=== PATIENT | female | born 1955 | race African-American/Black ===

== ENCOUNTER 2017-05-03 08:09 | Inpatient (IN) | payer SELFPAY ==
[~2017-05-03] VITALS: Ht 165.1 cm; Wt 74.3 kg
[2017-05-03] VITALS (20 sets, daily range): BP systolic 180–281; BP diastolic 86–149; PULSE 62–91; RESP 18–37; TEMP 98–98.2; O2SAT 95–99
[~2017-05-03 08:09] MED LIST: 1-ME1LIQ PO; LISI-363 PO
[2017-05-03] MEDS ORDERED: hydrALAZINE HCL 20 MG/ML VIAL ONE (08:22)
[2017-05-03] MEDS ORDERED: hydrALAZINE HCL 20 MG/ML VIAL IV PUSH ONE (08:30)
[2017-05-03] MEDS ORDERED: NITROGLYCERIN 2% OINT 1 GM PACKET TOP ONE (08:30)
[2017-05-03] MEDS ORDERED: ASPIRIN 81 MG CHEW TAB PO ONE (08:30)
[2017-05-03] MEDS ORDERED: FUROSEMIDE 20 MG/2 ML VIAL IVP ONE (08:30)
[2017-05-03] MEDS ORDERED: ASPI81CH CHEW (08:33)
--- NOTE | 2017-05-03 08:42 | PD ---
HPI Chief Complaint: Hypertension Time Seen by Provider: 08:16 Travel History International Travel<30 days: No Contact w/Intl Traveler<30days: No Traveled to known affect area: No History of Present Illness HPI PER PT HAS NO PCP AND HAS BEEN OUT OF MEDS FOR SEVERAL MONTHS. C/O MILD SOB, WITH SCHROEDER, DENIES CP.....HAS NOTED HIGH BLOOD PRESSURE WELL...sob is not improving, and has now being going on for 4 days, no alleviating factors. denies chest pain, but does admit to chest pressure, occasionally with her sob during exertion...currently 0/10 on chest pressure. PFSH Past Medical History Depression: Yes Cardiovascular Problems: Yes (HTN) Hypertension: Yes Immunizations Current: Yes ?: Not Past Surgical History Appendectomy: Yes Gynecologic Surgery: Yes (OVARIES REMOVED) Hysterectomy: Yes Social History Alcohol Use: Yes (occassionally ) Tobacco Use: Yes (1/2 PPD ) Substance Use: Yes Allergies-Medications (Allergen,Severity, Reaction): Coded Allergies: No Known Allergies (Verified , 09/16/15) Reported Meds & Prescriptions Reported Meds & Active Scripts Active Reported Aspirin 81 Mg Chew 81 Mg CHEW DAILY Review of Systems Except as stated in HPI: all other systems reviewed are Neg Respiratory: Positive: Shortness of Breath Physical Exam Narrative GENERAL: SKIN: Warm and dry. HEAD: Atraumatic. Normocephalic. EYES: Pupils equal and round. No scleral icterus. No injection or drainage. ENT: No nasal bleeding or discharge. Mucous membranes pink and moist. NECK: Trachea midline. No JVD. CARDIOVASCULAR: Regular rate and rhythm. RESPIRATORY: No accessory muscle use. Clear to auscultation. Breath sounds equal bilaterally. GASTROINTESTINAL: Abdomen soft, non-tender, nondistended. MUSCULOSKELETAL: Extremities without clubbing, cyanosis, or edema. No obvious deformities. NEUROLOGICAL: Awake and alert. No obvious cranial nerve deficits. Motor grossly within normal limits. Five out of 5 muscle strength in the arms and legs. Normal speech. PSYCHIATRIC: Appropriate mood and affect; insight and judgment normal. Data Data Last Documented VS Vital Signs Date Time Temp Pulse Resp B/P (MAP) Pulse Ox O2 Delivery O2 Flow Rate FiO2 05/03/17 10:49 68 274/142 05/03/17 10:32 28 98 Nasal Cannula 2.00 05/03/17 08:27 98.2 Orders Orders Hydralazine Inj (Apresoline Inj) (05/03/17 08:22) Complete Blood Count With Diff (05/03/17 08:28) Comprehensive Metabolic Panel (05/03/17 08:28) B-Type Natriuretic Peptide (05/03/17 08:28) Ckmb (Isoenzyme) Profile (05/03/17 08:28) Troponin I (05/03/17 08:28) Iv Access Insert/Monitor (05/03/17 08:28) Electrocardiogram (05/03/17 08:28) Ecg Monitoring (05/03/17 08:28) Oximetry (05/03/17 08:28) Oxygen Administration (05/03/17 08:28) Chest, Single Ap (05/03/17 08:28) Ct Pulmonary Angiogram (05/03/17 08:28) Furosemide Inj (Lasix Inj) (05/03/17 08:30) Hydralazine Inj (Apresoline Inj) (05/03/17 08:30) Aspirin Chew (Aspirin Chew) (05/03/17 08:30) Nitroglycerin 2% Oint (Nitroglycerin 2% (05/03/17 08:30) Furosemide Inj (Lasix Inj) (05/03/17 09:45) Iohexol 350 Inj (Omnipaque 350 Inj) (05/03/17 10:13) Nitroglycerin-D5w 50 Mg/250 Ml (Nitrogly (05/03/17 10:30) Admit Order (Ed Use Only) (05/03/17 11:05) Labs Laboratory Tests Test 05/03/17 08:20 White Blood Count 9.5 TH/MM3 Red Blood Count 5.30 MIL/MM3 Hemoglobin 16.5 GM/DL Hematocrit 48.6 % Mean Corpuscular Volume 91.7 FL Mean Corpuscular Hemoglobin 31.2 PG Mean Corpuscular Hemoglobin Concent 34.1 % Red Cell Distribution Width 14.1 % Platelet Count 298 TH/MM3 Mean Platelet Volume 7.9 FL Neutrophils (%) (Auto) 69.4 % Lymphocytes (%) (Auto) 21.6 % Monocytes (%) (Auto) 6.1 % Eosinophils (%) (Auto) 2.2 % Basophils (%) (Auto) 0.7 % Neutrophils # (Auto) 6.6 TH/MM3 Lymphocytes # (Auto) 2.1 TH/MM3 Monocytes # (Auto) 0.6 TH/MM3 Eosinophils # (Auto) 0.2 TH/MM3 Basophils # (Auto) 0.1 TH/MM3 CBC Comment DIFF FINAL Differential Comment Blood Urea Nitrogen 8 MG/DL Creatinine 0.82 MG/DL Random Glucose 104 MG/DL Total Protein 7.7 GM/DL Albumin 3.5 GM/DL Calcium Level 9.1 MG/DL Alkaline Phosphatase 70 U/L Aspartate Amino Transf (AST/SGOT) 20 U/L Alanine Aminotransferase (ALT/SGPT) 26 U/L Total Bilirubin 0.6 MG/DL Sodium Level 139 MEQ/L Potassium Level 3.5 MEQ/L Chloride Level 104 MEQ/L Carbon Dioxide Level 27.5 MEQ/L Anion Gap 8 MEQ/L Estimat Glomerular Filtration Rate 85 ML/MIN Total Creatine Kinase 66 U/L Troponin I 0.08 NG/ML B-Type Natriuretic Peptide 1770 PG/ML MDM Medical Decision Making Medical Screen Exam Complete: Yes Emergency Medical Condition: Yes Medical Record Reviewed: Yes Interpretation(s) NSR, LAE, LVH, NL INTERVALS, NONSTEMI PATTERN Differential Diagnosis PULM EMBOLUS V CHF V KIDNEY FAILURE Narrative Course patient presented quite hypertensive and without a history of kidney or congestvie heart failure...however, during evaluation jorge was found to have evidnece of new onset chf with cardiac ischemia, therefore patient was placed on admission path and d/w patient as well as admitting doc.......treatment requiredd lasix, ntg paste, asa, and hydralazine and no success so patient started on iv ntg drip Critical Care Narrative CRITICAL CARE NOTE: With evaluation of the patient, labs, EKG, receipt of radiologic studies, administration of medications, reevaluation the patient and discussion of the patient with the admitting physicians, the total critical care time was [45] minutes. Time to perform other separately billable procedures was not included in the critical care time. Diagnosis Primary Impression: hypertensive emergency Additional Impressions: new onset chf nonstemi Admitting Information Admitting Physician Requests: Observation Scripts Potassium Chloride Microencaps (Potassium Chloride Microencaps) 20 Meq Tab 20 MEQ PO BID for chf, #60 TAB Prov: Rachel Nolasco MD 05/04/17 Furosemide (Furosemide) 40 Mg Tab 40 MG PO DAILY for chf, #30 TAB Prov: Rachel Nolasco MD 05/04/17 Lisinopril (Lisinopril) 20 Mg Tab 40 MG PO DAILY for htn, #30 TAB Prov: Rachel Nolasco MD 05/04/17 Amlodipine (Norvasc) 10 Mg Tab 10 MG PO DAILY for htn, #30 TAB Prov: Rachel Nolasco MD 05/04/17 Carvedilol (Coreg) 3.125 Mg Tab 3.125 MG PO Q12HR for htn, #60 TAB Prov: Rachel Nolasco MD 05/04/17 Ervin Benitez MD May 03, 2017 08:42
[2017-05-03 08:57] LABS: AUTOMATED NEUTROPHIL # 6.6 TH/MM3 (1.8-7.7); BASOPHIL # 0.1 TH/MM3 (0-0.2); BASOPHIL % 0.7 % (0.0-2.0); EOSINOPHIL # 0.2 TH/MM3 (0-0.4); EOSINOPHIL % 2.2 % (0.0-4.0); HEMATOCRIT 48.6 % (35.0-46.0); HEMO FLAGS DIFF FINAL; LYMPH % 21.6 % (9.0-44.0); LYMPHOCYTE # 2.1 TH/MM3 (1.0-4.8); MEAN CELL VOLUME 91.7 FL (80.0-100.0); MEAN CORPUSCULAR HEMOGLOBIN 31.2 PG (27.0-34.0); MEAN CORPUSCULAR HGB CONC 34.1 % (32.0-36.0); MONO % 6.1 % (0.0-8.0); NEUT % 69.4 % (16.0-70.0); PLATELET COUNT 298 TH/MM3 (150-450); RED CELL DISTRIBUTION WIDTH 14.1 % (11.6-17.2); WHITE BLOOD COUNT 9.5 TH/MM3 (4.0-11.0)
[2017-05-03 09:06] LABS: ALT (GPT) 26 U/L (10-53); ANION GAP 8 MEQ/L (5-15); AST (GOT) 20 U/L (15-37); BICARBONATE 27.5 MEQ/L (21.0-32.0); BLOOD UREA NITROGEN 8 MG/DL (7-18); CHLORIDE 104 MEQ/L (98-107); GLOMERULAR FILTRATION RATE 85 ML/MIN (>89); POTASSIUM 3.5 MEQ/L (3.5-5.1); SODIUM (NA) 139 MEQ/L (136-145)
[2017-05-03 09:10] LABS: ALKALINE PHOSPHATASE 70 U/L (45-117); TOTAL BILIRUBIN ADULT 0.6 MG/DL (0.2-1.0)
[2017-05-03 09:13] LABS: CREATINE KINASE 66 U/L (26-192)
--- NOTE | 2017-05-03 09:44 | RADRPT ---
EXAM DATE/TIME: 05/03/2017 08:35 [facility] COMPARISON: CHEST SINGLE AP, September 16, 2015, 4:35. INDICATIONS : Short of breath MEDICAL HISTORY : Hypertension. SURGICAL HISTORY : None. ENCOUNTER: Initial ACUITY: 3 days PAIN SCORE: 0/10 LOCATION: chest FINDINGS: The heart is mildly enlarged. Minimal bibasilar streakiness is noted consistent with atelectasis and /or minimal infiltrates. Clinical correlation is recommended. Discoid atelectasis is noted within t he left mid lung field. CONCLUSION: 1. Minimal bibasilar streakiness consistent with atelectasis and/or developing infiltrates. Clinica l correlation is recommended. 2. Cardiomegaly. Naveen Quezada MD on May 03, 2017 at 9:23 Board Certified Radiologist. This report was verified electronically.
[2017-05-03] MEDS ORDERED: FUROSEMIDE 20 MG/2 ML VIAL IV PUSH ONE (09:45)
[2017-05-03] MEDS ORDERED: IOHEXOL 350 MG/ML 10 ML VIAL (for RAD DIAG) IVCONTRAST ONE (10:13)
[2017-05-03] MEDS ORDERED: NITROGLYCERIN-D5W 50 MG/250 ML 250 ML IV PRN (10:30)
--- NOTE | 2017-05-03 10:35 | RADRPT ---
EXAM DATE/TIME: 05/03/2017 10:03 [facility] COMPARISON: No previous studies available for comparison. INDICATIONS : Shortness of breath. IV CONTRAST: 74 cc Omnipaque 350 (iohexol) IV RADIATION DOSE: 23.21 CTDIvol (mGy) MEDICAL HISTORY : Hypertension. SURGICAL HISTORY : Hysterectomy. ENCOUNTER: Initial ACUITY: 1 day PAIN SCALE: 0/10 LOCATION: chest TECHNIQUE: Volumetric scanning of the chest was performed using a pulmonary embolism protocol MIP images were re constructed. Using automated exposure control and adjustment of the mA and/or kV according to patien t size, radiation dose was kept as low as reasonably achievable to obtain optimal diagnostic quality images. DICOM format image data is available electronically for review and comparison. Follow-up recommendations for detected pulmonary nodules are based at a minimum on nodule size and pa tient risk factors according to Fleischner Society Guidelines. FINDINGS: PULMONARY ARTERIES: No filling defects are seen in the pulmonary arteries through the segmental level. LUNGS: Minimal atelectasis present in the lung bases and left upper lobe. PLEURAE: Small bilateral pleural effusions. MEDIASTINUM: Mild prominence of central ediastinal nodes and of right hilar tamar tissue. MUSCULOSKELETAL: Within normal limits for patient age. MISCELLANEOUS: The visualized upper abdominal organs demonstrate no acute abnormality. CONCLUSION: No evidence of pulmonary embolism. Small effusions. Minimal atelectasis. Mild prominence of right hilar and mediastinal lymph nodes. Charly Wahl MD on May 03, 2017 at 10:26 Board Certified Radiologist. This report was verified electronically.
--- NOTE | 2017-05-03 11:38 | HHI.HP ---
[facility] No Primary Care Physician Admission Diagnosis HYPERTENSIVE EMERGENCY, NONSTEMI, Diagnoses: Chief Complaint: Short of breath Travel History International Travel<30 Days: No Contact w/Intl Traveler <30 Da: No Traveled to Known Affected Are: No History of Present Illness 62 years old female with chronic history of uncontrolled hypertension presented to the ED complaining of shortness of breath orthopnea but no chest pain, in ED she was found to have severe hypertension of 281/149, patient started on nitro drip, she was given hydralazine, troponin was 0.08. She denied any nausea or vomiting, diarrhea constipation, dysuria urgency frequency, recent flulike syndrome. She reported a headache 3 out of 10, Patient stated she hasn't been on any medication because she cannot find a PCP. Review of Systems All systems reviewed and was positive for what is mentioned in history of present illness otherwise negative Past Family Social History Past Medical History Uncontrolled hypertension Small vessel disease on head CT Chronic smoking abuse Appendectomy Hysterectomy Past Surgical History As above Allergies: Coded Allergies: No Known Allergies (Verified , 09/16/15) Family History Mother had GI cancer father had prostate cancer Social History Half pack per day for over 30 years, she drinks last a while every 2-3 days Physical Exam Vital Signs Vital Signs Date Time Temp Pulse Resp B/P (MAP) Pulse Ox O2 Delivery O2 Flow Rate FiO2 05/03/17 10:49 68 274/142 05/03/17 10:32 70 28 274/142 (186) 98 Nasal Cannula 2.00 05/03/17 09:57 62 200/88 (125) 05/03/17 09:42 69 188/86 (120) 05/03/17 09:21 67 24 208/100 (136) 98 Nasal Cannula 2.00 196/88 (124) 05/03/17 08:47 68 28 258/129 (172) 98 Nasal Cannula 2.00 05/03/17 08:34 98 Nasal Cannula 2.00 05/03/17 08:34 18 98 Nasal Cannula 2.00 05/03/17 08:28 75 18 98 Room Air 05/03/17 08:27 98.2 77 20 281/149 (193) 98 Nasal Cannula 2.00 241/138 (172) Physical Exam GENERAL: This is a well-nourished, well-developed patient, in no apparent distress. SKIN: No rashes, warm and dry HEAD: Atraumatic. Normocephalic. EYES: Pupils equal round and reactive. Extraocular motions intact. No scleral icterus. ENT: Nose without bleeding, or drainage, Airway patent. NECK: Trachea midline. Supple CARDIOVASCULAR: Regular rate and rhythm, no S4 gallop could be appreciated RESPIRATORY: Fair air entry bilaterally. No wheezes, rales, or rhonchi. GASTROINTESTINAL: Abdomen soft, non-tender, nondistended. Positive bowel sounds MUSCULOSKELETAL: Extremities without clubbing, cyanosis, or edema. Pedal pulses appreciated NEUROLOGICAL: Awake and alert. Moves all extremity. Normal speech.no focal neurological deficit Laboratory Laboratory Tests Test 05/03/17 08:20 White Blood Count 9.5 Red Blood Count 5.30 Hemoglobin 16.5 Hematocrit 48.6 Mean Corpuscular Volume 91.7 Mean Corpuscular Hemoglobin 31.2 Mean Corpuscular Hemoglobin Concent 34.1 Red Cell Distribution Width 14.1 Platelet Count 298 Mean Platelet Volume 7.9 Neutrophils (%) (Auto) 69.4 Lymphocytes (%) (Auto) 21.6 Monocytes (%) (Auto) 6.1 Eosinophils (%) (Auto) 2.2 Basophils (%) (Auto) 0.7 Neutrophils # (Auto) 6.6 Lymphocytes # (Auto) 2.1 Monocytes # (Auto) 0.6 Eosinophils # (Auto) 0.2 Basophils # (Auto) 0.1 CBC Comment DIFF FINAL Differential Comment Blood Urea Nitrogen 8 Creatinine 0.82 Random Glucose 104 Total Protein 7.7 Albumin 3.5 Calcium Level 9.1 Alkaline Phosphatase 70 Aspartate Amino Transf (AST/SGOT) 20 Alanine Aminotransferase (ALT/SGPT) 26 Total Bilirubin 0.6 Sodium Level 139 Potassium Level 3.5 Chloride Level 104 Carbon Dioxide Level 27.5 Anion Gap 8 Estimat Glomerular Filtration Rate 85 Total Creatine Kinase 66 Troponin I 0.08 B-Type Natriuretic Peptide 1770 Result Diagram: 05/03/1781905/03/17819 Imaging Last Impressions Chest X-Ray 05/03/17827 Signed Impressions: Service Date/Time: April 08:35 - CONCLUSION: 1. Minimal bibasilar streakiness consistent with atelectasis and/or developing infiltrates. Clinical correlation is recommended. 2. Cardiomegaly. Naveen Quezada MD CT Angiography 05/03/17 0828 Signed Impressions: Service Date/Time: April 10:03 - CONCLUSION: No evidence of pulmonary embolism. Small effusions. Minimal atelectasis. Mild prominence of right hilar and mediastinal lymph nodes. Charly Wahl MD Head CT 05/03/17 0000 Signed Impressions: Service Date/Time: April 12:09 - CONCLUSION: 1. Moderate periventricular/subcortical white matter small vessel ischemic changes are noted bilaterally. 2. No acute infarct, acute hemorrhage, mass effect or extra-axial fluid collections. Naveen Quezada MD Capcarteri VTE Risk Assessment Caprini VTE Risk Assessment: Mod/High Risk (score >= 2) Caprini Risk Assessment Model Point Value = 1 Point Value = 2 Point Value = 3 Point Value = 5 Age 41-60 Minor surgery BMI > 25 kg/m2 Swollen legs Varicose veins or History of unexplained or recurrent spontaneous Oral contraceptives or hormone replacement Sepsis (< 1 month) Serious lung disease, including pneumonia (< 1 month) Abnormal pulmonary function Acute myocardial infarction Congestive heart failure (< 1 month) History of inflammatory bowel disease Medical patient at bed rest Age 61-74 Arthroscopic surgery Major open surgery (> 45 min) Laparoscopic surgery (> 45 min) Malignancy Confined to bed (> 72 hours) Immobilizing plaster cast Central venous access Age >= 75 History of VTE Family history of VTE Factor V Leiden Prothrombin [id number] Lupus anticoagulant Anticardiolipin antibodies Elevated serum homocysteine Heparin-induced thrombocytopenia Other congenital or acquired thrombophilia Stroke (< 1 month) Elective arthroplasty Hip, pelvis, or leg fracture Acute spinal cord injury (< 1 month) Prophylaxis Regimen Total Risk Factor Score Risk Level Prophylaxis Regimen 0-1 Low Early ambulation 2 Moderate Order ONE of the following: *Sequential Compression Device (SCD) *Heparin 5000 units SQ BID 3-4 Higher Order ONE of the following medications: *Heparin 5000 units SQ TID *Enoxaparin/Lovenox 40 mg SQ daily (WT < 150 kg, CrCl > 30 mL/min) *Enoxaparin/Lovenox 30 mg SQ daily (WT < 150 kg, CrCl > 10-29 mL/min) *Enoxaparin/Lovenox 30 mg SQ BID (WT < 150 kg, CrCl > 30 mL/min) AND/OR *Sequential Compression Device (SCD) 5 or more Highest Order ONE of the following medications: *Heparin 5000 units SQ TID (Preferred with Epidurals) *Enoxaparin/Lovenox 40 mg SQ daily (WT < 150 kg, CrCl > 30 mL/min) *Enoxaparin/Lovenox 30 mg SQ daily (WT < 150 kg, CrCl > 10-29 mL/min) *Enoxaparin/Lovenox 30 mg SQ BID (WT < 150 kg, CrCl > 30 mL/min) AND *Sequential Compression Device (SCD) Assessment and Plan Assessment and Plan 62 years old AA female presented with Severe hypertensive urgency/emergency with worsening kidney disease Elevated troponin mostly due to hypertensive emergency, LVH Most likely diastolic cardiomyopathy awaiting 2-D echo for confirmation Increase creatinine mostly hypertensive nephropathy History of chronic hypertension-controlled, treated Tobacco abuse Elevated BNP 1770 mostly underlying diastolic dysfunction 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 DVT prophylaxis Plan: Admit to IMC with close monitoring under telemetry Started on nitroglycerin, Nitropatch, given hydralazine iv Monitor blood pressure closely pain for 25% decrease for the first 12-18 hours Started on lisinopril, amlodipine, Coreg Consulted cardiology 2-D echo pending Check FLP DVT prophylaxis with heparin, check CT head to rule out IC H prior Discussed Condition With Patient in ED physician Physician Certification 2 Midnight Certification Type: Admission for Inpatient Services Order for Inpatient Services The services are ordered in accordance with Medicare regulations or non- Medicare payer requirements, as applicable. In the case of services not specified as inpatient-only, they are appropriately provided as inpatient services in accordance with the 2-midnight benchmark. Estimated LOS (days): 2 days is the estimated time the patient will need to remain in the hospital, assuming treatment plan goals are met and no additional complications. Post-Hospital Plan: Home Rachel Nolasco MD May 03, 2017 11:38
[2017-05-03] MEDS ORDERED: hydrALAZINE HCL 20 MG/ML VIAL IV PRN (11:45)
--- NOTE | 2017-05-03 12:30 | RADRPT ---
EXAM DATE/TIME: 05/03/2017 12:09 [facility] COMPARISON: No previous studies available for comparison. INDICATIONS : Headache, hypertensive emergency RADIATION DOSE: 27.22 CTDIvol (mGy) MEDICAL HISTORY : Hypertension. SURGICAL HISTORY : Hysterectomy. ENCOUNTER: Initial ACUITY: 1 day PAIN SCALE: 3/10 LOCATION: cranial TECHNIQUE: Multiple contiguous axial images were obtained of the head. Using automated exposure control and adj ustment of the mA and/or kV according to patient size, radiation dose was kept as low as reasonably a chievable to obtain optimal diagnostic quality images. DICOM format image data is available electro nically for review and comparison. FINDINGS: CEREBRUM: The ventricles are normal for age. No evidence of midline shift, mass lesion, hemorrhage or acute in farction. No extra-axial fluid collections are seen. Moderate periventricular/subcortical white humaira er small vessel ischemic changes are noted bilaterally. POSTERIOR FOSSA: The cerebellum and brainstem are intact. The 4th ventricle is midline. The cerebellopontine angle i s unremarkable. EXTRACRANIAL: The visualized portion of the orbits is intact. SKULL: The calvaria is intact. No evidence of skull fracture. CONCLUSION: 1. Moderate periventricular/subcortical white matter small vessel ischemic changes are noted bilatera lly. 2. No acute infarct, acute hemorrhage, mass effect or extra-axial fluid collections. Naveen Quezada MD on May 03, 2017 at 12:24 Board Certified Radiologist. This report was verified electronically.
--- NOTE | 2017-05-03 14:21 | MB ---
cc: GRUPO ADAN M.D. DATE OF CONSULTATION: 05/03/2017 REASON FOR CONSULTATION Evaluation of elevated troponin. HISTORY OF PRESENT ILLNESS Carol Flanagan is a 62-year-old -[place] female admitted to the hospital with uncontrolled hypertension. She has had multiple ER visits going back to 2002. She has a longstanding history of hypertension and a longstanding history of poor compliance. She says she has been having trouble finding a physician that accepts [place] that is in the area where she can travel to. She does not drive. She has been out of meds for a very long time. She has had other visits here with extreme hypertension including I found one February 2016 when she was 271/146. This time she was 281/149. She started noticing shortness of breath and orthopnea 3 days ago, has not had any typical anginal type pain. She finally decided to come to the hospital to get it checked out. She does not have a physician that follows her and she has no regular medications. She has previous EKG showing LVH changes. So far she has received is IV medication, actually has not started on anything orally. She denies syncope or presyncope. She smokes half-pack of cigarettes a day. She likes to drink beer. She says she is bored so she sits on her porch and drinks beer. Of note, she was Garcia Acted in August of 2015 after taking 10 Lortab and four alcoholic drinks and the psychiatry consult at that time suggested that she had alcoholism. I was not able to actually quantify how much beer she drinks currently. PAST MEDICAL HISTORY Past medical history includes: 1. Previous [place] Act for taking 10 Lortab and four drinks September 16, 2015. 2. Chronic uncontrolled hypertension with evidence for LVH. 3. Small-vessel disease on a head CT, probably consistent with longstanding hypertension. 4. Chronic tobacco abuse. PAST SURGICAL HISTORY 1. Appendectomy. 2. Hysterectomy. SOCIAL HISTORY Lives alone. Her and she is . She has two sons, six grandchildren, two great-grandchildren. She says her two sons are unable to help her, one lives in [place] and one is busy working. FAMILY HISTORY The family history is positive for hypertension. PHYSICAL EXAMINATION GENERAL: Well-developed, well-nourished -[place] female, slightly tearful, not in any acute distress. VITAL SIGNS: Charted. HEENT: Exam unremarkable. NECK: Negative for JVD or bruits. CHEST: Shows diminished breath sounds. No rales or wheezes. CARDIAC: S1, S2, S4, regular rate and rhythm. I do not hear a murmur. ABDOMEN: Soft, nontender. EXTREMITIES: No clubbing, cyanosis or edema. Pulses are intact. EKG Shows sinus rhythm with left ventricular hypertrophy. IMAGING STUDIES Chest x-ray shows some minimal bibasilar changes. CT showed no PE but a small effusions, all this consistent with mild CHF. LABORATORY Troponin is 0.08. BNP 1770. Hematocrit 48.6, creatinine 0.82. IMPRESSION Severe uncontrolled hypertension secondary to noncompliance with medications, her hypertension, fairly advanced age, she has left ventricular hypertrophy demonstrated by EKG, probably has a component of heart failure and most likely due to diastolic dysfunction but an echo would help sort this out. She has not been started on any p.o. meds yet. PLAN I recommend we go ahead and start p.o. meds. I am giving her 10 mg of amlodipine, 40 mg of lisinopril now and daily, starting carvedilol 3.125 p.o. b.i.d. Giving her one dose of p.o. Lasix and potassium supplements and continuing that daily. Check a 2-D echo Doppler study. Long-term she needs to get established with a primary care physician. Unclear to me what her alcohol status is, whether she is an alcoholic or not I cannot tell at this point and that might need to be further explored by the primary team. MD SAMMIE Banegas/DALI /1:30 PM /1:47 PM
[2017-05-03] MEDS: FUROSEMIDE 40 MG TAB PO SCH (14:23)
[2017-05-03] MEDS: LISINOPRIL 20 MG TAB PO SCH (14:24)
[2017-05-03] MEDS: NITROGLYCERIN-D5W 50 MG/250 ML 250 ML IV PRN ×2 (14:28→23:40)
[2017-05-03] MEDS ORDERED: LORazepam 1 MG TAB PO PRN (15:30)
[2017-05-03] MEDS ORDERED: LORazepam 2 MG/ML VIAL IV PUSH PRN ×4 (15:30)
[2017-05-03] MEDS ORDERED: FLUMAZENIL 0.5 MG/5 ML VIAL IV PUSH PRN (15:30)
[2017-05-03] MEDS ORDERED: LORazepam 2 MG TAB PO PRN (15:30)
[2017-05-03] MEDS: POTASSIUM CHLORIDE 20 MEQ CONTROLLED RELEASE TAB PO SCH (17:39)
[2017-05-03] MEDS: CARVEDILOL 3.125 MG TAB PO SCH (21:00)
[2017-05-03] MEDS ORDERED: ACETAMINOPHEN 325 MG TAB PO PRN (22:15)
[2017-05-04] VITALS (14 sets, daily range): BP systolic 148–178; BP diastolic 72–98; PULSE 64–83; RESP 22–35; TEMP 97.7–98.6; O2SAT 93–100
[2017-05-04 00:09] LABS: GLOMERULAR FILTRATION RATE 67 ML/MIN (>89)
[2017-05-04 00:11] LABS: CREATINE KINASE 117 U/L (26-192)
[2017-05-04 00:24] LABS: CKMB 1.9 NG/ML (0.5-3.6)
[2017-05-04 04:36] LABS: AUTOMATED NEUTROPHIL # 8.5 TH/MM3 (1.8-7.7); BASOPHIL % 0.3 % (0.0-2.0); EOSINOPHIL # 0.1 TH/MM3 (0-0.4); EOSINOPHIL % 1.1 % (0.0-4.0); HEMATOCRIT 44.4 % (35.0-46.0); HEMO FLAGS DIFF FINAL; LYMPH % 20.3 % (9.0-44.0); LYMPHOCYTE # 2.4 TH/MM3 (1.0-4.8); MEAN CORPUSCULAR HEMOGLOBIN 31.1 PG (27.0-34.0); MEAN CORPUSCULAR HGB CONC 34.2 % (32.0-36.0); MONO % 5.9 % (0.0-8.0); NEUT % 72.4 % (16.0-70.0); PLATELET COUNT 315 TH/MM3 (150-450); RED BLOOD COUNT 4.88 MIL/MM3 (4.00-5.30); RED CELL DISTRIBUTION WIDTH 13.6 % (11.6-17.2); WHITE BLOOD COUNT 11.8 TH/MM3 (4.0-11.0)
[2017-05-04 05:01] LABS: BICARBONATE 24.1 MEQ/L (21.0-32.0); POTASSIUM 3.5 MEQ/L (3.5-5.1)
[2017-05-04 05:06] LABS: CREATINE KINASE 133 U/L (26-192); HDL CHOLESTEROL 48.6 MG/DL (40.0-60.0); LDL CHOLESTEROL 90 MG/DL (0-99)
[2017-05-04 05:18] LABS: CKMB 1.5 NG/ML (0.5-3.6)
[2017-05-04] MEDS: LISINOPRIL 20 MG TAB PO SCH (08:41)
[2017-05-04] MEDS: CARVEDILOL 3.125 MG TAB PO SCH (08:41)
[2017-05-04] MEDS: FUROSEMIDE 40 MG TAB PO SCH (08:41)
[2017-05-04] MEDS: POTASSIUM CHLORIDE 20 MEQ CONTROLLED RELEASE TAB PO SCH ×2 (08:41→13:06)
--- NOTE | 2017-05-04 10:02 | PD.CARD.PN ---
Subjective Subjective Remarks SOB resolved. Slept good without orthopnea. No angina Objective Medications Current Medications Medications (Trade) Dose Ordered Sig/Gabriella Route Start Time Stop Time Status Last Admin Nitroglycerin/ Dextrose 250 ml @ 1.5 mls/hr TITRATE PRN IV 05/03/17 11:30 05/03/17 23:40 (Apresoline Inj) 10 mg Q6H PRN IV 05/03/17 11:45 05/03/17 12:29 (Norvasc) 10 mg DAILY PO 05/03/17 13:30 05/04/17 08:41 (Prinivil) 40 mg DAILY PO 05/03/17 13:30 05/04/17 08:41 (Lasix) 40 mg DAILY PO 05/03/17 13:30 05/04/17 08:41 (KCl) 20 meq TID PO 05/03/17 18:00 05/04/17 08:41 (Coreg) 3.125 mg Q12HR PO 05/03/17 21:00 05/04/17 08:41 (Romazicon Inj) 0.2 mg Q1M PRN IV PUSH 05/03/17 15:30 (Ativan) 1 mg Q4H PRN PO 05/03/17 15:30 (Ativan Inj) 1 mg Q4H PRN IV PUSH 05/03/17 15:30 (Ativan) 2 mg Q2H PRN PO 05/03/17 15:30 (Ativan Inj) 2 mg Q2H PRN IV PUSH 05/03/17 15:30 (Ativan Inj) 2 mg Q1H PRN IV PUSH 05/03/17 15:30 (Ativan Inj) 2 mg Q15M PRN IV PUSH 05/03/17 15:30 (Tylenol) 650 mg Q6HR PRN PO 05/03/17 22:15 05/03/17 23:06 Vital Signs / I&O Vital Signs Date Time Temp Pulse Resp B/P (MAP) Pulse Ox O2 Delivery O2 Flow Rate FiO2 05/04/17 08:38 77 158/89 05/04/17 06:00 72 05/04/17 04:00 98.3 71 22 167/98 (121) 95 05/04/17 04:00 73 05/04/17 02:00 74 05/04/17 00:00 98.6 75 24 157/81 (106) 93 05/04/17 00:00 76 05/03/17 23:40 79 148/80 05/03/17 22:00 77 05/03/17 21:50 97 21 05/03/17 20:00 90 05/03/17 20:00 98.0 91 22 180/99 (126) 97 05/03/17 18:00 78 05/03/17 16:00 88 05/03/17 16:00 98.0 88 37 199/106 (137) 99 05/03/17 15:00 70 30 206/112 (143) 95 05/03/17 15:00 70 05/03/17 14:45 77 211/123 05/03/17 14:37 74 05/03/17 14:28 74 203/115 05/03/17 13:27 73 18 221/112 (148) 98 Nasal Cannula 2.00 05/03/17 13:20 74 18 190/99 (129) 99 Nasal Cannula 2.00 05/03/17 12:51 73 18 198/112 (140) 99 Nasal Cannula 2.00 05/03/17 12:29 68 18 221/109 (146) 97 Nasal Cannula 2.00 05/03/17 12:01 98 Nasal Cannula 2.00 05/03/17 11:49 69 18 210/112 (144) 98 Room Air 05/03/17 10:49 68 274/142 05/03/17 10:32 70 28 274/142 (186) 98 Nasal Cannula 2.00 I/O 05/03/17 05/03/17 05/03/17 05/04/17 05/04/17 05/04/17 06:59 14:59 22:59 06:59 14:59 22:59 Intake Total 26 ml 708 ml 710 ml Output Total 550 ml Balance 26 ml 158 ml 710 ml Intake Oral 708 ml 710 ml IV Total 26 ml Output Urine Total 550 ml # Voids 3 # Bowel Movements 0 Physical Exam GENERAL: Well developed, well nourished. No acute distress. HEENT: Jugular venous pressure is normal. CHEST: Lungs clear to auscultation bilaterally. Unlabored respiratory effort. CARDIAC: Regular rate and rhythm with S4 ABDOMEN: Soft, nontender, no hepatosplenomegaly. Bowel sounds present. EXTREMITIES: No clubbing, cyanosis, or edema. Laboratory Laboratory Tests Test 05/03/17 22:46 05/04/17 03:46 Creatinine 1.01 MG/DL 1.04 MG/DL Estimat Glomerular Filtration Rate 67 ML/MIN 65 ML/MIN Total Creatine Kinase 117 U/L 133 U/L Creatine Kinase MB 1.9 NG/ML 1.5 NG/ML Troponin I 0.08 NG/ML 0.08 NG/ML White Blood Count 11.8 TH/MM3 Red Blood Count 4.88 MIL/MM3 Hemoglobin 15.2 GM/DL Hematocrit 44.4 % Mean Corpuscular Volume 91.0 FL Mean Corpuscular Hemoglobin 31.1 PG Mean Corpuscular Hemoglobin Concent 34.2 % Red Cell Distribution Width 13.6 % Platelet Count 315 TH/MM3 Mean Platelet Volume 7.7 FL Neutrophils (%) (Auto) 72.4 % Lymphocytes (%) (Auto) 20.3 % Monocytes (%) (Auto) 5.9 % Eosinophils (%) (Auto) 1.1 % Basophils (%) (Auto) 0.3 % Neutrophils # (Auto) 8.5 TH/MM3 Lymphocytes # (Auto) 2.4 TH/MM3 Monocytes # (Auto) 0.7 TH/MM3 Eosinophils # (Auto) 0.1 TH/MM3 Basophils # (Auto) 0.0 TH/MM3 CBC Comment DIFF FINAL Differential Comment Blood Urea Nitrogen 16 MG/DL Random Glucose 102 MG/DL Calcium Level 9.0 MG/DL Sodium Level 136 MEQ/L Potassium Level 3.5 MEQ/L Chloride Level 100 MEQ/L Carbon Dioxide Level 24.1 MEQ/L Anion Gap 12 MEQ/L Triglycerides Level 91 MG/DL Cholesterol Level 157 MG/DL LDL Cholesterol 90 MG/DL HDL Cholesterol 48.6 MG/DL Cholesterol/HDL Ratio 3.23 RATIO Imaging Last 48 hours Impressions Chest X-Ray 05/03/17827 Signed Impressions: Service Date/Time: April 08:35 - CONCLUSION: 1. Minimal bibasilar streakiness consistent with atelectasis and/or developing infiltrates. Clinical correlation is recommended. 2. Cardiomegaly. Naveen Quezada MD CT Angiography 05/03/17827 Signed Impressions: Service Date/Time: April 10:03 - CONCLUSION: No evidence of pulmonary embolism. Small effusions. Minimal atelectasis. Mild prominence of right hilar and mediastinal lymph nodes. Charly Wahl MD Head CT 05/03/17 0000 Signed Impressions: Service Date/Time: April 12:09 - CONCLUSION: 1. Moderate periventricular/subcortical white matter small vessel ischemic changes are noted bilaterally. 2. No acute infarct, acute hemorrhage, mass effect or extra-axial fluid collections. Naveen Quezada MD Assessment and Plan Problem List: (1) Hypertensive heart and renal disease ICD Codes: I13.10 - Hypertensive heart and chronic kidney disease without heart failure, with stage 1 through stage 4 chronic kidney disease, or unspecified chronic kidney disease Plan: BP much better controlled (2) Acute exacerbation of CHF (congestive heart failure) ICD Codes: I50.9 - Heart failure, unspecified Status: Acute Plan: Improved. (3) Elevated troponin ICD Codes: R74.8 - Abnormal levels of other serum enzymes Plan: Doubt MD. Probably due to LVH Assessment and Plan Await echo. Stable for non-ICU bed. Probably able to be discharged in next 24 hours Problem Qualifiers (1) Acute exacerbation of CHF (congestive heart failure): Qualified Codes: I50.9 - Heart failure, unspecified Sal Warner MD May 04, 2017 10:02
[2017-05-04] MEDS ORDERED: LISI-515 PO (11:38)
[2017-05-04] MEDS ORDERED: CARV3.125 PO (11:38)
[2017-05-04] MEDS ORDERED: POTA20TA5 PO (11:38)
[2017-05-04] MEDS ORDERED: AMLO10 PO (11:38)
[2017-05-04] MEDS ORDERED: FURO40TA PO (11:38)
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
--- NOTE | 2017-05-04 12:03 | EKG ---
Date Performed: 05/03/2017 Time Performed: 08:19:52 PTAGE: 62 years EKG: Sinus rhythm LEFT ATRIAL ENLARGEMENT LEFT VENTRICULAR HYPERTROPHY AND ST-T CHANGE ABNORMAL ECG NO PREVIOUS TRACING DOCTOR: Uriah Keyes Interpretating Date/Time 05/04/2017 12:02:33
== END 2017-05-04 13:15 | disposition home or self-care (01) | DRG 292 ==
LOC: NEPC 08:09 → NEDA 11:08 → HIMW 13:45
PROVIDERS: ADMIT Hospitalist; ATTEND Hospitalist
DX: I13.0 Hypertensive heart and chronic kidney disease with heart failure and stage 1 through stage 4 chronic kidney disease, or unspecified chronic kidney disease (principal); I16.1 Hypertensive emergency; F17.210 Nicotine dependence, cigarettes, uncomplicated; I50.30 Unspecified diastolic (congestive) heart failure; Z91.14 Patient's other noncompliance with medication regimen; N18.9 Chronic kidney disease, unspecified
CPT/HCPCS: 70450; 71010; 71275; 80048; 80053; 80061; 82550; 82552; 82565; 83880; 84484; 85025; 93005; 96365; 96375; 96376; J0360; J1940; Q9967